=== PATIENT | female | born 1985 | race Caucasian/White ===

== ENCOUNTER 2024-07-06 18:28 | Emergency (ER) | payer MEDICAID ==
[~2024-07-06] VITALS: Ht 165.1 cm; Wt 86.0 kg
[2024-07-06 18:33] VITALS: BP 135/87; PULSE 83; O2SAT 98
[2024-07-06] MEDS: acetaminophen 325mg tablet PO STA (21:44)
[2024-07-06 21:45] VITALS: RESP 16
[2024-07-06] MEDS: ketorolac trometh 30MG/ML vial 30 MG/ML VIAL IM STA (21:45)
[2024-07-06] MEDS ORDERED: MELO-102 PO (22:03)
[2024-07-06] MEDS ORDERED: METH-798 PO (22:03)
[2024-07-06 22:31] VITALS: TEMP 98
== END 2024-07-06 22:32 | disposition home or self-care (01) ==
LOC: ER 18:29
DX: S39.012A Strain of muscle, fascia and tendon of lower back, initial encounter (principal); S29.012A Strain of muscle and tendon of back wall of thorax, initial encounter; Z79.899 Other long term (current) drug therapy; W01.0XXA Fall on same level from slipping, tripping and stumbling without subsequent striking against object, initial encounter; Y93.89 Activity, other specified; Y92.89 Other specified places as the place of occurrence of the external cause; Y99.0 Civilian activity done for income or pay
CPT/HCPCS: 72070; 72100; 96372; 99284; J1885